=== PATIENT | male | born 1965 | race Caucasian/White ===

== ENCOUNTER 2016-05-10 08:07 | Day surgery (SDC) | payer OTHER ==
[~2016-05-10] VITALS: Ht 188 cm; Wt 104.3 kg
--- NOTE | ~2016-05-10 | O ---
[facility] [place] [address] OPERATIVE REPORT Name: ARINWILLIAM ROPERRIN Room #: DEP [facility] M..#: [id number] Admission: 05/10/16 Attend Phys: Shayne Kirby MD Discharge: 05/10/16 Date of : 63 Report #: [id number] THIS REPORT FOR: //name// CC: Sd Kirby DATE OF SERVICE: 05/10/2016 PREOPERATIVE DIAGNOSES: Known squamous cell carcinoma, metastatic, right neck; questionable right base of tongue/hypopharyngeal mass. POSTOPERATIVE DIAGNOSIS: Frozen section positive squamous cell carcinoma, invasive, right hypopharynx. NAME OF THE PROCEDURE: Direct laryngoscopy with biopsy. SURGEON: Shayne Kirby MD ANESTHESIA: General oral endotracheal; 7.0 endotracheal tube. TECHNIQUE: After obtaining consent, he was brought to the operating suite and appropriate timeout was performed. General anesthesia was obtained via an oral endotracheal route with the use of the Glidescope and Bougie intubation due to anterior presentation of airway. Once the patient was intubated, the bed was turned 90 degrees, placed in a modified nghia position with neck hyperextension. Palpation of the neck revealed the previously noted right zone 2 and 3 lymph nodes. Palpation intraorally failed to reveal any mass in the mobile tongue. There was a questionable ____ at the very end of the digital reach that there may be a mass from the right base of tongue. Dedo laryngoscope was used to intubate the oral cavity and was advanced into the oropharynx. Small amount of blood was noted and it was removed, probably due to intubation trauma. Examination of the left hypopharynx was unremarkable. I could not see the piriform aperture on the left or right side due to the patient's presentation; however, it should be noted when seen in the office there was no tumor in these areas. The epiglottis was in its normal position. He has rather prominent lymphoid hyperplasia of the lingual tonsillar region. There was generalized fullness noted in the right lateral base of tongue splitting towards the right hypopharyngeal wall. This side was also oozing slightly, so I elected to take biopsies from the masses that existed down the right hypopharyngeal wall. I could not see the apex of the piriform sinus on this side and could not sweep into the postcricoid area. Multiple biopsies were taken and given to pathology with a frozen section diagnosis returning squamous cell carcinoma, invasive. Hemostasis was obtained with the use of [id number] cottonoids with ____ placed directly over the biopsy site and held for approximately 5-[address] [address] OPERATIVE REPORT Name: WILLIAM HINKLE Room #: DEP [facility] M.R.#: [id number] Admission: 05/10/16 Attend Phys: Shayne Kirby MD Discharge: 05/10/16 Date of : 63 Report #: [id number] completion of the procedure, I removed the pledget; there was no active bleeding noted. Dedo laryngoscope was withdrawn and the oropharynx was suctioned free of secretions. It should be noted that a mouth guard was used to protect the dentition in the entire case. ESTIMATED BLOOD LOSS: 10 mL. <ELECTRONICALLY SIGNED> By: Shayne Kirby MD 05/17/16 0730 [id number] 1745 Shayne Kirby MD /nt
--- NOTE | ~2016-05-10 | S ---
[facility] [place] [address] SURGICAL PATH RPT PROCEDURE Name: WILLIAM HINKLE Room #: DEP [facility].#: [id number] Admission: 05/10/16 Date of : 63 Discharge: 05/10/16 Report #: [id number] Path Case #: [id number] PATHOLOGY REPORT COLLECTION DATE: 05/10/2016 RECEIVED DATE: 05/10/2016 SUBMITTING PHYS: Dr. Shayne Kirby OTHER PHYS: Dr. 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 Co-review: Dr. Parul Paul (IUV:all; d/t: 05/13/2016) PATHOLOGIST: Debbie Thompson M.D. REPORT ELECTRONICALLY SIGNED BY: Debbie Thompson M.D. DATE/TIME: 05/13/2016 15:29 * * * * * * * * * * * * GROSS PATHOLOGY: Specimen A is received fresh from the OR labeled with the patient's name and "base of tongue" consists of multiple red eason fragments of tissue measuring an aggregate of 1.5 x 1 x 0.2 cm. Submitted in entirely for frozen section as FSA1, subsequently submitted for permanent sections as A1. (IUV:all; d/t: 05/10/2016) FROZEN SECTION DIAGNOSIS: (Debbie Thompson M.D.,) FA1, base of tongue, biopsy: - SQUAMOUS CELL CARCINOMA WITH FOCAL INVASION. These findings are discussed with Dr. Shayne Kirby in OR2 at [facility] and a written report is placed in the patient's chart. 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 INITIAL CPT CODE(S): A; 22901, 97175, 11276 Professional services performed by [facility] at [place] [address] [address], [place] [address] Technical services performed by [facility] at [address] [place] [address], [facility] [address] [place] [address]. [facility] [address] [place] [id number] PHONE: [phone] DIRECTOR: Jesus Tate M.D. * * * END OF REPORT * * *
[~2016-05-10 08:07] MED LIST: AMBIEN 5 MG TABL5 M1 PO; NORCO 10-325 T1 EACH PO; XANAX 0.5 MG0.5 MG PO
[2016-05-10 10:53] VITALS: BP 106/73
[2016-05-10 14:16] VITALS: BP 106/73
== END 2016-05-10 15:47 | disposition home or self-care (01) ==
LOC: TBA 08:07 → OR 08:07 → TBA 08:08 → OR 08:59
DX: C13.9 Malignant neoplasm of hypopharynx, unspecified (principal); C01 Malignant neoplasm of base of tongue; F41.9 Anxiety disorder, unspecified; K21.9 Gastro-esophageal reflux disease without esophagitis; Z87.891 Personal history of nicotine dependence; Z98.890 Other specified postprocedural states
CPT/HCPCS: 50010; 50101; 62110; 62900; 64031; 70005

== ENCOUNTER → 2020-10-11 | Outpatient (CLI) | payer OTHER | LOC: RAD 15:54 | PROVIDERS: ATTEND Otolaryngology | DX: R05 Cough (principal) ==